=== PATIENT | male | born 1975 | race Caucasian/White ===

== ENCOUNTER 2020-08-24 07:33 | Emergency (ER) | payer BC ==
[~2020-08-24 07:33] MED LIST: KEFLEX CAP 500500 MG PO; NORCO 5-325 TA1 EACH PO
== END 2020-08-24 09:30 | disposition short-term general hospital (02) ==
LOC: ER1 07:33
DX: S61.051A Open bite of right thumb without damage to nail, initial encounter (principal); Z23 Encounter for immunization; W54.0XXA Bitten by dog, initial encounter; Y92.410 Unspecified street and highway as the place of occurrence of the external cause
CPT/HCPCS: 90471; 90715; 96365; 99283; J0690